=== PATIENT | male | born 1975 | race Caucasian/White ===

== ENCOUNTER 2021-08-19 19:49 | Emergency (ER) | payer BC ==
[~2021-08-19] VITALS: Ht 185.4 cm; Wt 99.8 kg
[2021-08-19] MEDS ORDERED: CASIRIVIMAB/IMDEVIMAB 10 ML in SODIUM CHLORIDE 0.9% 100 ML IV ONE ×4 (20:00)
[2021-08-19] MEDS ORDERED: ONDANSETRON HCL INJ 2MG/ML 2ML 2 MG/ML VIAL IV STA (20:02)
[2021-08-19] MEDS ORDERED: VENTOLIN HFA18 GM INH (21:03)
[2021-08-19] MEDS ORDERED: ACETAMINOPHEN 325 MG TAB PO ONE (21:30)
== END 2021-08-19 21:46 | disposition home or self-care (01) ==
LOC: ER 19:57
DX: U07.1 COVID-19 (principal)
CPT/HCPCS: 99284; J2405; J7050

== ENCOUNTER 2021-08-21 22:03 | Inpatient (IN) | payer BC ==
[~2021-08-21] VITALS: Ht 190.5 cm; Wt 99.8 kg
[~2021-08-21 22:03] MED LIST: VENTOLIN HFA18 GM INH
[2021-08-21] MEDS ORDERED: SODIUM CHLORIDE 0.9% 1000ML 1,000 ML IV STA (22:07)
[2021-08-21 22:25] LABS: HEMATOCRIT 49.5 % (38.2-49.6); HEMOGLOBIN 16.8 g/dL (14.0-18.0); LYMPHOCYTES # (AUTO) 1.1 (1.0-3.2); LYMPHOCYTES % 29.8 % (18.0-39.1); MEAN CORPUSCULAR HEMOGLOBIN 28.5 pg (28-32); MEAN CORPUSCULAR HGB CONC 33.9 g/dL (31-35); MONOCYTES # (AUTO) 0.3 (0.2-0.8); MONOCYTES % 8.8 % (4.4-11.3); NEUTROPHILS # (AUTO) 2.3 (2.1-6.9); NEUTROPHILS % 61.1 % (38.7-80.0); PLATELET COUNT 193 x10e3/uL (140-360); RED BLOOD COUNT 5.89 x10e6/uL (4.3-5.7)
[2021-08-21] MEDS ORDERED: SODIUM CHLORIDE 0.9% 1000ML 1,000 ML IV SCH (22:30)
[2021-08-21 22:33] LABS: ABG PCO2 27 mmHg (35-45); ABG PO2 71 mmHg (80-105)
[2021-08-21 22:34] LABS: ABG HCO3 21 mmol/L (22-26); ABG TCO2 22
[2021-08-21 22:44] LABS: ALBUMIN 3.4 g/dL (3.5-5.0); ALBUMIN/GLOBULIN RATIO 0.8 (0.8-2.0); ANION GAP 19.8 mmol/L (8-16); CALCIUM 8.6 mg/dL (8.4-10.2); CREATININE, SERUM 1.28 mg/dL (0.72-1.25); POTASSIUM 3.8 mmol/L (3.5-5.1)
[2021-08-21 22:51] LABS: CREATINE KINASE MB 1.2 ng/mL (0-5.0)
[2021-08-21 22:55] LABS: B-TYPE NATRIURETIC PEPTIDE2 < 5.0 pg/mL (0-100)
[2021-08-22] VITALS (8 sets, daily range): BP systolic 107–120; BP diastolic 71–89
[2021-08-22] MEDS ORDERED: HYDRALAZINE HCL 20 MG/ML VIAL IV PRN (00:30)
[2021-08-22] MEDS ORDERED: ONDANSETRON HCL INJ 2MG/ML 2ML 2 MG/ML VIAL IV PRN (00:30)
[2021-08-22] MEDS ORDERED: ACETAMINOPHEN 325 MG TAB PO PRN (00:30)
[2021-08-22] MEDS ORDERED: CEFTRIAXONE 1 GM in SODIUM CHLORIDE 0.9% 50ML 50 ML IV ONE (00:30)
[2021-08-22] MEDS ORDERED: DEXAMETHASONE SOD PHOS INJ 4 MG/ML SDV IV ONE (00:30)
[2021-08-22] MEDS ORDERED: INSULIN GLARGINE 100 UNITS/ML VIAL SQ SCH ×5 (00:30→21:00)
[2021-08-22] MEDS ORDERED: SODIUM CHLORIDE 0.9% 250ML 250 ML ONE (01:06)
[2021-08-22 07:40] LABS: HEMATOCRIT 43.2 % (38.2-49.6); HEMOGLOBIN 14.5 g/dL (14.0-18.0); LYMPHOCYTES # (AUTO) 0.8 (1.0-3.2); LYMPHOCYTES % 27.6 % (18.0-39.1); MEAN CORPUSCULAR HEMOGLOBIN 28.9 pg (28-32); MEAN CORPUSCULAR HGB CONC 33.6 g/dL (31-35); MEAN CORPUSCULAR VOLUME 86.2 fL (81-99); MONOCYTES # (AUTO) 0.1 (0.2-0.8); MONOCYTES % 4.5 % (4.4-11.3); NEUTROPHILS % 67.6 % (38.7-80.0); PLATELET COUNT 171 x10e3/uL (140-360); RED BLOOD COUNT 5.01 x10e6/uL (4.3-5.7); RED CELL DISTRIBUTION WIDTH 12.3 % (11.7-14.4)
[2021-08-22 07:59] LABS: ALBUMIN 2.8 g/dL (3.5-5.0); ALBUMIN/GLOBULIN RATIO 0.8 (0.8-2.0); ANION GAP 14.1 mmol/L (8-16); CALCIUM 8.1 mg/dL (8.4-10.2); CREATININE, SERUM 0.87 mg/dL (0.72-1.25); POTASSIUM 4.1 mmol/L (3.5-5.1)
[2021-08-22 08:15] LABS: CREATINE KINASE 284 IU/L (30-200)
[2021-08-22] MEDS: INSULIN LISPRO 100 UNIT/1 ML 3ML VIAL SQ SCH ×3 (09:00→21:15)
[2021-08-22 09:18] LABS: LYMPHOCYTES % (MANUAL) 17 % (19-48); MONOCYTES % (MANUAL) 5 % (3.4-9.0); NEUTROPHILS % (MANUAL) 76 % (40-74)
[2021-08-22 09:19] LABS: PLATELET ESTIMATE ADEQUATE; PLATELET MORPHOLOGY COMMENT NORMAL
[2021-08-22 09:20] LABS: RBC MORPHOLOGY COMMENT NORMAL
[2021-08-22] MEDS: DOCUSATE SODIUM 100 MG CAP PO SCH ×2 (09:38→17:03)
[2021-08-22] MEDS: MULTIVITAMINS/MINERALS TAB PO SCH (09:38)
[2021-08-22] MEDS: DEXAMETHASONE SOD PHOS INJ 4 MG/ML SDV IV SCH (09:38)
[2021-08-22] MEDS ORDERED: REMDESIVIR 200MG 200 MG in SODIUM CHLORIDE 0.9% 100 ML IV ONE (10:00)
[2021-08-22] MEDS ORDERED: INSULIN LISPRO 100 UNIT/1 ML 3ML VIAL SQ ONE (15:30)
[2021-08-22] MEDS: ASCORBIC ACID 500 MG TAB PO SCH (17:03)
[2021-08-22] MEDS: ENOXAPARIN SOD INJ 40 MG/0.4 ML SYR SC SCH (17:03)
[2021-08-22] MEDS ORDERED: INSULIN LISPRO 100 UNIT/1 ML 3ML VIAL SQ SCH (21:00)
[2021-08-23] VITALS (8 sets, daily range): BP systolic 107–118; BP diastolic 68–90
[2021-08-23 05:40] LABS: HEMATOCRIT 40.8 % (38.2-49.6); HEMOGLOBIN 14.1 g/dL (14.0-18.0); LYMPHOCYTES # (AUTO) 0.9 (1.0-3.2); LYMPHOCYTES % 26.4 % (18.0-39.1); MEAN CORPUSCULAR HGB CONC 34.6 g/dL (31-35); MEAN CORPUSCULAR VOLUME 83.8 fL (81-99); MONOCYTES # (AUTO) 0.3 (0.2-0.8); NEUTROPHILS # (AUTO) 2.2 (2.1-6.9); NEUTROPHILS % 64.3 % (38.7-80.0); PLATELET COUNT 176 x10e3/uL (140-360); RED BLOOD COUNT 4.87 x10e6/uL (4.3-5.7)
[2021-08-23 06:12] LABS: ALBUMIN 2.6 g/dL (3.5-5.0); ALBUMIN/GLOBULIN RATIO 0.8 (0.8-2.0); ANION GAP 13.3 mmol/L (8-16); CALCIUM 7.8 mg/dL (8.4-10.2); CREATININE, SERUM 0.79 mg/dL (0.72-1.25); POTASSIUM 3.3 mmol/L (3.5-5.1)
[2021-08-23] MEDS: DEXTROSE 50% SYRINGE 50 ML IV PRN (06:40)
[2021-08-23] MEDS: INSULIN LISPRO 100 UNIT/1 ML 3ML VIAL SQ SCH ×4 (07:30→21:00)
[2021-08-23 08:07] LABS: LYMPHOCYTES % (MANUAL) 22 % (19-48); MONOCYTES % (MANUAL) 8 % (3.4-9.0); NEUTROPHILS % (MANUAL) 67 % (40-74)
[2021-08-23 08:08] LABS: PLATELET ESTIMATE ADEQUATE; PLATELET MORPHOLOGY COMMENT NORMAL; RBC MORPHOLOGY COMMENT NORMAL
[2021-08-23] MEDS: INSULIN GLARGINE 100 UNITS/ML VIAL SQ SCH ×2 (09:00→21:00)
[2021-08-23] MEDS ORDERED: INSULIN GLARGINE 100 UNITS/ML VIAL SQ SCH ×2 (09:00→21:00)
[2021-08-23] MEDS ORDERED: ONDANSETRON HCL 4 MG ORAL DISINTEGRATING TAB PO PRN (09:45)
[2021-08-23] MEDS: DOCUSATE SODIUM 100 MG CAP PO SCH ×2 (09:50→17:35)
[2021-08-23] MEDS: ZINC SULFATE 50 MG CAP PO SCH (09:50)
[2021-08-23] MEDS: MULTIVITAMINS/MINERALS TAB PO SCH (09:50)
[2021-08-23] MEDS: ASCORBIC ACID 500 MG TAB PO SCH ×2 (09:50→17:35)
[2021-08-23] MEDS: DEXAMETHASONE SOD PHOS INJ 4 MG/ML SDV IV SCH (09:50)
[2021-08-23] MEDS: REMDESIVIR 100MG 100 MG in SODIUM CHLORIDE 0.9% 100 ML IV SCH (10:49)
[2021-08-23] MEDS ORDERED: POTASSIUM CHLORIDE 20 MEQ TAB CR PO ONE (12:30)
[2021-08-23] MEDS: ENOXAPARIN SOD INJ 40 MG/0.4 ML SYR SC SCH ×2 (17:00→17:35)
[2021-08-24] VITALS (8 sets, daily range): BP systolic 116–146; BP diastolic 77–94
[2021-08-24] MEDS: INSULIN LISPRO 100 UNIT/1 ML 3ML VIAL SQ SCH ×4 (07:30→20:45)
[2021-08-24] MEDS: INSULIN GLARGINE 100 UNITS/ML VIAL SQ SCH ×2 (07:51→20:45)
[2021-08-24] MEDS: ASCORBIC ACID 500 MG TAB PO SCH ×2 (09:24→17:50)
[2021-08-24] MEDS: DEXAMETHASONE SOD PHOS INJ 4 MG/ML SDV IV SCH (09:24)
[2021-08-24] MEDS: MULTIVITAMINS/MINERALS TAB PO SCH (09:24)
[2021-08-24] MEDS: DOCUSATE SODIUM 100 MG CAP PO SCH ×2 (09:24→17:50)
[2021-08-24] MEDS: ZINC SULFATE 50 MG CAP PO SCH (09:24)
[2021-08-24] MEDS: REMDESIVIR 100MG 100 MG in SODIUM CHLORIDE 0.9% 100 ML IV SCH (12:27)
[2021-08-24] MEDS: ENOXAPARIN SOD INJ 40 MG/0.4 ML SYR SC SCH (17:00)
[2021-08-25 00:47] VITALS: BP 124/74
[2021-08-25 05:12] VITALS: BP 133/81
[2021-08-25] MEDS: INSULIN LISPRO 100 UNIT/1 ML 3ML VIAL SQ SCH ×3 (07:30→17:07)
[2021-08-25 08:00] VITALS: BP 116/76
[2021-08-25] MEDS: ASCORBIC ACID 500 MG TAB PO SCH ×2 (08:49→16:42)
[2021-08-25] MEDS: DEXAMETHASONE SOD PHOS INJ 4 MG/ML SDV IV SCH (08:49)
[2021-08-25] MEDS: INSULIN GLARGINE 100 UNITS/ML VIAL SQ SCH (08:49)
[2021-08-25] MEDS: MULTIVITAMINS/MINERALS TAB PO SCH (08:49)
[2021-08-25] MEDS: ZINC SULFATE 50 MG CAP PO SCH (08:49)
[2021-08-25] MEDS: DOCUSATE SODIUM 100 MG CAP PO SCH ×2 (08:49→16:42)
[2021-08-25] MEDS: DEXTROSE 50% SYRINGE 50 ML IV PRN (08:54)
[2021-08-25] MEDS: REMDESIVIR 100MG 100 MG in SODIUM CHLORIDE 0.9% 100 ML IV SCH (10:50)
[2021-08-25 12:00] VITALS: BP 122/78
[2021-08-25 16:00] VITALS: BP 125/81
[2021-08-25] MEDS: ENOXAPARIN SOD INJ 40 MG/0.4 ML SYR SC SCH (16:48)
[2021-08-26] MEDS ORDERED: AZITHROMYCIN 250 MG TAB PO SCH (09:00)
== END 2021-08-25 18:09 | disposition home or self-care (01) | DRG 177 ==
LOC: ER 22:08 → ERHOLD 22:26 → MED/SURG3 08-22 00:08
PROVIDERS: ADMIT Family Medicine; ATTEND Family Medicine
PROC: XW033E5 Introduction of Remdesivir Anti-infective into Peripheral Vein, Percutaneous Approach, New Technology Group 5 (ICD-10-PCS; principal; 2021-08-22)
PROC: 3E0333Z Introduction of Anti-inflammatory into Peripheral Vein, Percutaneous Approach (ICD-10-PCS; 2021-08-22)
DX: U07.1 COVID-19 (principal); J12.82 Pneumonia due to coronavirus disease 2019; J96.01 Acute respiratory failure with hypoxia; N17.9 Acute kidney failure, unspecified; E87.2 Acidosis; M62.82 Rhabdomyolysis; Z88.0 Allergy status to penicillin; E11.9 Type 2 diabetes mellitus without complications; Z79.4 Long term (current) use of insulin; R79.89 Other specified abnormal findings of blood chemistry; E88.09 Other disorders of plasma-protein metabolism, not elsewhere classified
CPT/HCPCS: 36415; 36600; 71045; 80053; 82550; 82553; 82805; 82948; 83036; 83605; 83880; 84484; 85025; 87040; 93005; 94640; 94799; 99284; J0456; J0696; J1100; J1650; J1815; J7030; J7050; J7799; U0002